=== PATIENT | female | born 1995 | race American Indian/Alaskan Native ===

== ENCOUNTER 2022-09-23 18:36 | Emergency (ER) | payer OTHER, SELFPAY ==
--- NOTE | ~2022-09-23 | XR_ITS ---
EXAMINATION: XR FEMUR, RIGHT CLINICAL INFORMATION: Thigh pain. COMPARISON: None available. TECHNIQUE: AP and lateral views of the right femur were obtained. FINDINGS: The bones and soft tissues are normal. No fracture. No osseous lesions. XR/XR femur RT 2V IMPRESSION: Normal right femur.
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
[2022-09-23 18:42] VITALS: BP 121/84; PULSE 110; O2SAT 100
[2022-09-23 18:44] VITALS: BP 125/87; PULSE 100; RESP 16; TEMP 37.3; O2SAT 99; BMI 23.3
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
[2022-09-23 19:01] LABS: MANUAL DIFF FLAG NO
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
[2022-09-23 19:22] LABS: Alanine Aminotransferase 47 U/L (0-31); Albumin Level 4.6 g/dL (3.5-5.0); Alkaline Phosphatase 56 U/L (39-117); Anion Gap 13 (12-20); Aspartate Amino Transferase 115 U/L (5-31); Basophils Percent Auto 0.3 % (0-2); Bilirubin Direct 0.2 mg/dL (0.0-0.5); Bilirubin Total 0.7 mg/dL (0.0-1.0); Blood Urea Nitrogen 11 mg/dL (9-16); Calcium 9.3 mg/dL (8.4-10.2); Carbon Dioxide 23 mmol/L (22-29); Chloride 106 mmol/L (96-108); Creatinine Clr Calc Pharmacy 82.5; Eosinophils Absolute Auto 0.1 X10*3/uL (0.0-0.4); Eosinophils Percent Auto 1.1 % (0-4); Estimated Glomerular Filt Rate > 60; Glucose Random 125 mg/dL (60-115); HCG Quantitative < 2 mIU/mL; Hematocrit 41.1 % (37.0-47.0); Hemoglobin 13.6 g/dl (12.0-16.0); Imm Gran Abs Auto 0.01 X10*3/uL (0.00-0.03); Imm Gran Pct Auto 0.2 % (0.0-0.4); Lymphocytes Absolute Auto 1.7 X10*3/uL (1.2-4.9); Lymphocytes Percent Auto 25.9 % (20-40); Mean Corpuscular HGB Conc 33.1 g/dl (31.0-35.0); Mean Corpuscular Hemoglobin 29.4 pg (27.0-33.0); Mean Platelet Volume 10.4 fL (9.4-12.3); Monocytes Absolute Auto 0.4 X10*3/uL (0.1-1.2); Monocytes Percent Auto 6.4 % (2-11); Neutrophils Absolute Auto 4.2 x10*3/uL (2.0-8.3); Neutrophils Percent Auto 66.1 % (45-73); Platelet Count 249 X10*3/uL (160-400); Potassium 3.6 mmol/L (3.3-5.1); Red Blood Count 4.62 X10*6/uL (4.20-5.50); Red Cell Distribution Width 11.6 % (11.0-16.0); Sodium 138 mmol/L (135-145); Total Protein 7.3 g/dL (6.5-8.0); White Blood Count 6.4 X10*3/uL (4.8-10.8)
[2022-09-23 20:00] VITALS: BP 109/69; PULSE 85; RESP 16; TEMP 36.6; O2SAT 98
--- NOTE | 2022-09-23 20:00 | MHC.EDTECH ---
2000 rounding done vitals sign taken ,pt was assisted unto bed sesay void lg amount of urine .
--- NOTE | 2022-09-23 20:12 | PC.NURSE ---
Pt to imaging
[2022-09-23 20:19] LABS: Appearance Urine Clear; Color Urine Yellow; Glucose Urine UA Negative (Negative); Leukocyte Esterase Urine Negative (Negative); Nitrite Urine Negative (Negative); PH 6.5 (5.0-9.0); Specific Gravity - Urine <= 1.005 (1.005-1.025); Urine Blood Negative (Negative); Urine Ketones Negative (Negative); Urine Protein Negative (Neg-Trace)
[2022-09-23] MEDS: iohexoL 350 MG/ML 100 ML INFUS..BTL IV (20:22)
[2022-09-23 20:31] LABS: Bacteria Urine None Seen (None Seen); Hyaline Casts Urine 0-2 /LPF (0-2); RBC Urine 0-2 /HPF (0-2); Squamous Epithelial Cell Urine 0-2 /HPF (0-2); WBC Urine 0-5 /HPF (0-5)
[2022-09-23 21:21] VITALS: BP 109/80; PULSE 87; RESP 15; TEMP 37.2; O2SAT 97
[2022-09-23 21:30] VITALS: BP 116/85; PULSE 96; RESP 18; O2SAT 97
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
--- NOTE | 2022-09-23 21:57 | PC.NURSE ---
Report to [facility].
== END 2022-09-23 22:02 | disposition short-term general hospital (02) ==
PROVIDERS: Emergency Provider Emergency Medicine Emergency Medical Services
DX: S06.5XAA Traumatic subdural hemorrhage with loss of consciousness status unknown, initial encounter (principal); V47.5XXA Car driver injured in collision with fixed or stationary object in traffic accident, initial encounter; Y93.89 Activity, other specified; Y92.410 Unspecified street and highway as the place of occurrence of the external cause; Y99.9 Unspecified external cause status
CPT/HCPCS: 36415; 70450; 71260; 72125; 73552; 74177; 80048; 80076; 81001; 84702; 85025; 99285; Q9967

== ENCOUNTER 2023-05-28 11:28 | Emergency (ER) | payer MEDICAID, SELFPAY ==
[2023-05-28 11:34] VITALS: BP 125/75; PULSE 93; RESP 18; TEMP 36.1; O2SAT 99; BMI 22.7
--- NOTE | 2023-05-28 11:34 | ED.GENADULT ---
HPI - General Adult General Chief complaint: General Medical Stated complaint: std check Time Seen by Provider: 05/28/23 11:38 Source: patient Mode of arrival: ambulatory Limitations: no limitations History of Present Illness HPI narrative: Patient is a 27 year old assigned female at with no reported medical history presenting to the emergency department today with a new lesion on her face and concern for STI. Patient states that 2 days ago she had oral sex and now has this lesion on her lip. Patient states that she has also felt febrile with a headache. Patient denies any dizziness, lightheadedness, abdominal pain, nausea, vomiting, chills, blurry vision, double vision, loss of vision, chest pain, difficulty breathing, shortness of breath, back pain, night sweats, pain with urination, increased urinary frequency, increased urinary urgency, blood in her urine or stool, syncope or a near syncopal episode, recent trauma or falls, bowel incontinence, bladder incontinence, bowel retention, bladder retention, or any other complaints at this time. Onset (ago): day(s) Severity: mild Severity scale (1-10): 2 Relieving factors: none Exacerbating factors: none Associated symptoms: fever/chills and headaches Treatments prior to arrival: none Related Data Previous Rx's Medication Instructions Recorded acyclovir 400 mg tablet 400 mg PO TID 7 days #21 tabs 05/28/23 doxycycline hyclate 100 mg tablet 100 mg PO BID 7 days #14 tabs 05/28/23 Allergies Allergy/AdvReac Type Severity Reaction Status Date / Time shrimp Allergy Angioedema Verified 05/28/23 11:38 Review of Systems Constitutional: Constitutional: Reports no additional constitutional complaints, Denies chills, Reports fever(s), Reports headache(s) and Denies night sweats Eyes: Eyes: Reports no additional eye complaints, Denies blurry vision, Denies change in vision, Denies diplopia, Denies eye discharge, Denies loss of vision and Denies eye pain ENT: Denies dizziness and Reports headache(s) Comments: lip lesion Cardiovascular: Cardiovascular: Reports no additional cardiovascular complaints, Denies chest pain, Denies lightheadedness, Denies Loss of Consciousness and Denies dyspnea Respiratory: Respiratory: Reports no additional respiratory complaints and Denies dyspnea Gastrointestinal: Gastrointestinal: Reports no additional gastrointestinal complaints, Denies abdominal pain, Denies melena, Denies hematochezia, Denies change in bowel habits and Denies change in stool character Genitourinary: Genitourinary: Denies hematuria, Denies urinary frequency, Denies dysuria, Denies urinary incontinence, Denies urinary hesitancy and Denies urinary urgency Musculoskeletal: Musculoskeletal: Reports no additional musculoskeletal complaints, Denies numbness and Denies tingling Neurologic: Denies dizziness, Reports headache(s), Denies loss of vision, Denies numbness and Denies tingling Psychiatric: Psychiatric: Reports no additional psychiatric complaints Endocrine: Endocrine: Reports no additional endocrine complaints Hematologic/Lymphatic: Hematologic/Lymphatic: Reports no additional hematologic/lymphatic complaints Allergic/Immunologic: Allergic/Immunologic: Reports no additional allergic/immunologic complaints PMFSH Past Medical History Attestation statement: The following information was validated with the patient. Source: old records reviewed and nursing notes reviewed Social History Social History Advance Directives: No Advance Directives Information Provided: No Physical Exam ED Vital Signs: Vital Signs - 24 hr 05/28/23 11:34 05/28/23 12:19 Temperature 97 F 98.1 F Pulse Rate 93 79 Respiratory Rate 18 14 Blood Pressure 125/75 122/81 Pulse Oximetry 99 98 Oxygen Delivery Method Room Air Room Air BMI result Body Mass Index 22.7 Const General: cooperative, no acute distress, alert and awake Nutritional Appearance: well nourished Orientation/consciousness: patient oriented x3 Limitations: no limitations HENMT Head: Yes normal to inspection and Yes atraumatic Ears: hearing grossly normal bilaterally and external ears normal General nose exam: Normal external nose present, no nasal discharge noted and no epistaxis Face and sinus: Yes normal facial exam, No abrasion and No laceration Mouth: Normal oral and palatal mucosa present, no drooling and no muffled voice Mouth/tongue images: 1. herpetic lesion present Eyes General: appearance normal, both eyes and all related structures Periorbital: periorbital findings normal Eyelids: Yes eyelids normal Conjunctivae: conjunctivae normal Pupils: Equal, round and reactive pupils present EOM: EOMs intact bilaterally Neck Neck: Yes normal visual inspection, Yes full ROM and Yes no lymphadenopathy Chest Chest palpation & inspection: normal inspection of the chest Resp Effort & Inspection: normal respiratory effort and able to speak in complete sentences GI Inspection: Yes normal to inspection Neuro General: patient oriented x3 and moves all extremities Cranial nerves: Yes Equal, round and reactive pupils present Cognition (Neuro): normal cognition Motor exam (neuro): 5/5 motor strength present throughout Sensory Exam: Normal double simultaneous stimulation for sensation Coordination: [id number] test normal Extrem General: Yes normal to inspection, Yes full ROM and Yes capillary refill normal Psych Appearance: grossly normal Mental Status: mental status grossly normal Affect: normal affect Attitude: cooperative Thought process: Normal thought process present Thought content: Normal thought content present Insight: Good insight present (Psych) Course Course Course Narrative: RME performed by Sirena Tamez PA-C. Patient is a 27 year old assigned female at presenting to the emergency department with concerns of STI. Patient has a fever and headache as well as a new facial lesion after having oral sex with an individual. Swabs ordered. Patient placed back in the waiting room pending room availability and results. Medications Administered Discontinued Medications Generic Name Dose Route Start Last Admin Trade Name Freq PRN Reason Stop Dose Admin Ceftriaxone Sodium 500 mg/ 0 mg 05/28/23 11:37 05/28/23 12:29 Lidocaine HCl 1 ml IM 05/28/23 11:38 500 kit ONCE ONE Administration Doxycycline Monohydrate 100 mg 05/28/23 11:37 05/28/23 12:29 Doxycycline Monohydrate 100 Mg Capsule PO 05/28/23 11:38 100 mg ONCE ONE Administration Medical Decision Making Medical Decision Making [facility] Narrative: Patient is a 27 year old assigned female at with no reported medical history presenting to the emergency department today with a lip lesion, concern for STI, and a headache. Patient's physical exam was as noted in the physical exam portion of this chart. Patient's COVID-19, influenza, and RSV tests were negative. Patient's CT / NG is pending at this time. I explained my physical exam findings as well as all test results to the patient. I answered all questions asked by the patient. I stressed the importance of the patient taking her medication as prescribed. I stressed the importance of the patient following up with her primary care provider. I stressed the importance of the patient returning to the emergency department immediately if her symptoms were to worsen or if she were to develop any dizziness, shortness of breath, difficulty breathing, chest pain, blurry vision, loss of vision, nausea, vomiting, abdominal pain, fever, chills, back pain, or any other complaints. Patient verbalized agreement and understanding with this treatment plan and discharge. Differential Diagnosis Differential Diagnoses: The differential diagnosis associated with the presentation includes Herpes HSV Gonorrhea Chlamydia Viral illness COVID-19 RSV Influenza Admission/Observation Consideration of admission/observation: Escalation of care including admission/observation considered Patient would have been admitted to the hospital had her work up had any findings where hospital admission was appropriate and her clinical presentation warranted hospital admission. Lab Data [facility]DM Lab Attestation statement: I reviewed the patient's lab results. My interpretation of these studies and their corresponding values is that they are grossly normal. Labs: Lab Results 05/28/23 Range/Units 12:01 Influenza Type A (PCR) NEGATIVE (Negative) Influenza Type B (PCR) NEGATIVE (Negative) RSV RNA Qual (PCR) NEGATIVE (Negative) SARS-CoV-2 RNA (RT-PCR) NEGATIVE (Negative) Prescription Management I considered prescription management with: Antiviral (patient prescribed an antiviral for her HSV) and Antibiotic (patient prescribed an antibiotic for STI prophylaxis) Discharge Plan Discharge Clinical Impression: Cold sore, Possible exposure to STD Patient Disposition: Home, Self-Care Instructions: Sexually Transmitted Diseases (ED), Safe Sex Practices (ED), Oral Herpes Simplex Virus Infections (ED) Additional Instructions: We will call you if your test is positive. Follow up with your primary care provider. Return to the emergency department immediately if your symptoms worsen or if you develop any dizziness, shortness of breath, difficulty breathing, chest pain, blurry vision, loss of vision, nausea, vomiting, abdominal pain, fever, chills, back pain, or any other complaints. Prescriptions: New acyclovir 400 mg tablet 400 mg PO TID 7 Days Qty: 21 0RF doxycycline hyclate 100 mg tablet 100 mg PO BID 7 Days Qty: 14 0RF Referrals: [facility] Family Medicine [Provider Group] (Call to establish and follow up with a primary care provider. If you already have a primary care provider, please follow up with them.) [facility] Primary [facility] [Provider Group] (Call to establish and follow up with a primary care provider. If you already have a primary care provider, please follow up with them.) [facility] Primary [facility]ital[facility] [Provider Group] (Call to establish and follow up with a primary care provider. If you already have a primary care provider, please follow up with them.) Print Language: Lithuanian
[2023-05-28 12:19] VITALS: BP 122/81; PULSE 79; RESP 14; TEMP 36.7; O2SAT 98
[2023-05-28] MEDS: Doxycycline Monohydrate 100 MG CAPSULE PO (12:29)
[2023-05-28] MEDS: cefTRIAXone sodium 500 MG, Lidocaine HCl 1 % MPF 1 ML IM (12:29)
[2023-05-28 12:45] LABS: Influenza A PCR NEGATIVE (Negative); Influenza B PCR NEGATIVE (Negative); Resp Syncy Virus RNA Qual PCR NEGATIVE (Negative); SARS COV2 PCR INHOUSE NEGATIVE (Negative)
[2023-05-28 15:40] LABS: CT PCR NOT DETECTED (Not Detect.); NG PCR NOT DETECTED (Not Detect.)
== END 2023-05-28 13:27 | disposition home or self-care (01) ==
PROVIDERS: Physician Assistant Medical; Emergency Provider Student in an Organized Health Care Education/Training Program
DX: B00.1 Herpesviral vesicular dermatitis (principal); Z20.2 Contact with and (suspected) exposure to infections with a predominantly sexual mode of transmission; Z20.822 Contact with and (suspected) exposure to COVID-19; Z20.828 Contact with and (suspected) exposure to other viral communicable diseases
CPT/HCPCS: 0241U; 0353U; 96372; 99283; 99284; J0696

== ENCOUNTER 2023-07-20 10:43 | Emergency (ER) | payer MEDICAID, SELFPAY ==
[2023-07-20 11:20] VITALS: BP 116/70; PULSE 100; RESP 18; TEMP 36.9; O2SAT 99; BMI 25.4
--- NOTE | 2023-07-20 11:22 | ED_ITS ---
HPI - General Adult General Chief complaint: Nausea/Vomiting/Diarrhea Stated complaint: Vomiting Time Seen by Provider: 07/20/23 12:55 Source: patient Mode of arrival: ambulatory Limitations: no limitations History of Present Illness HPI narrative: 27 yo female with no significant pmhx presents to the ED c/o nausea/vomiting, and diarrhea that began 2 days ago. PT stated she was eating dinner Tuesday night and soon after began to feel nauseous. She woke up yesterday morning and took a home temperature of 103 and began vomiting and having episodes of diarrhea. Today she is having worsening nausea and diarrhea which she took pepto bismol for with no relief. She denies headache, congestion, sore throat. Onset (ago): day(s) Location: abdomen Radiation: non-radiation Severity: mild Severity scale (1-10): 3 Relieving factors: none Exacerbating factors: none Associated symptoms: fever/chills Treatments prior to arrival: other (pepto bismol ) Related Data Previous Rx's Medication Instructions Recorded acyclovir 400 mg tablet 400 mg PO TID 7 days #21 tabs 05/28/23 doxycycline hyclate 100 mg tablet 100 mg PO BID 7 days #14 tabs 05/28/23 cefuroxime axetil 250 mg tablet 250 mg PO BID 7 days #14 tabs 07/20/23 ondansetron 4 mg disintegrating 4 mg PO Q8H 3 days #9 tabs 07/20/23 tablet Allergies Allergy/AdvReac Type Severity Reaction Status Date / Time shrimp Allergy Angioedema Verified 07/20/23 11:20 Review of Systems 2 Constitutional: Constitutional: Reports no additional constitutional complaints, Denies chills, Denies fever(s) and Denies night sweats Eyes: Eyes: Reports no additional eye complaints, Denies blurry vision, Denies change in vision, Denies diplopia, Denies eye discharge, Denies loss of vision and Denies eye pain ENT: Denies dizziness Cardiovascular: Cardiovascular: Reports no additional cardiovascular complaints, Denies chest pain, Denies lightheadedness, Denies Loss of Consciousness and Denies dyspnea Respiratory: Respiratory: Reports no additional respiratory complaints and Denies dyspnea Gastrointestinal: Gastrointestinal: Reports no additional gastrointestinal complaints, Reports abdominal pain, Denies melena, Denies hematochezia, Denies change in bowel habits, Denies change in stool character, Reports nausea and Reports vomiting Genitourinary: Genitourinary: Denies hematuria, Denies urinary frequency, Denies dysuria, Denies urinary incontinence, Denies urinary hesitancy and Denies urinary urgency Musculoskeletal: Musculoskeletal: Reports no additional musculoskeletal complaints, Denies numbness and Denies tingling Neurologic: Denies dizziness, Denies loss of vision, Denies numbness and Denies tingling Psychiatric: Psychiatric: Reports no additional psychiatric complaints Endocrine: Endocrine: Reports no additional endocrine complaints Hematologic/Lymphatic: Hematologic/Lymphatic: Reports no additional hematologic/lymphatic complaints Allergic/Immunologic: Allergic/Immunologic: Reports no additional allergic/immunologic complaints PMFSH Past Medical History Attestation statement: The following information was validated with the patient. Source: old records reviewed and nursing notes reviewed Social History Social History Advance Directives: No Physical Exam ED Vital Signs: Vital Signs - 24 hr 07/20/23 11:20 07/20/23 16:07 Temperature 98.5 F 98.3 F Pulse Rate 100 84 Respiratory Rate 18 18 Blood Pressure 116/70 99/63 Pulse Oximetry 99 100 Oxygen Delivery Method Room Air Room Air BMI result Body Mass Index 25.4 Const General: cooperative, no acute distress, alert and awake Nutritional Appearance: well nourished Orientation/consciousness: patient oriented x3 Limitations: no limitations HENMT Head: Yes normal to inspection and Yes atraumatic Ears: hearing grossly normal bilaterally and external ears normal General nose exam: Normal external nose present, no nasal discharge noted and no epistaxis Face and sinus: Yes normal facial exam, No abrasion and No laceration Mouth: Normal oral and palatal mucosa present, no drooling and no muffled voice Eyes General: appearance normal, both eyes and all related structures Periorbital: periorbital findings normal Eyelids: Yes eyelids normal Conjunctivae: conjunctivae normal Pupils: Equal, round and reactive pupils present EOM: EOMs intact bilaterally Neck Neck: Yes normal visual inspection, Yes full ROM and Yes no lymphadenopathy Chest Chest palpation & inspection: normal inspection of the chest Resp Effort & Inspection: normal respiratory effort and able to speak in complete sentences GI Inspection: Yes normal to inspection Palpation (GI): Soft to palpation, not firm, nontender and no guarding Neuro General: patient oriented x3 and moves all extremities Cranial nerves: Yes Equal, round and reactive pupils present Cognition (Neuro): normal cognition Motor exam (neuro): 5/5 motor strength present throughout Sensory Exam: Normal double simultaneous stimulation for sensation Coordination: [id number] test normal Extrem General: Yes normal to inspection, Yes full ROM and Yes capillary refill normal Psych Appearance: grossly normal Mental Status: mental status grossly normal Affect: normal affect Attitude: cooperative Thought process: Normal thought process present Thought content: Normal thought content present Insight: Good insight present (Psych) Course Course Course Narrative: Patient complains of nausea vomiting and diarrhea past 3 days Labs sent This rapid medical exam done in triage pending full evaluation by ER provider Medications Administered Discontinued Medications Generic Name Dose Route Start Last Admin Trade Name Freq PRN Reason Stop Dose Admin Sodium Chloride 1,000 mls @ 999 mls/hr 07/20/23 15:15 07/20/23 17:08 Ns IV 07/20/23 16:15 Infused .Q1H1M ARTHUR Infusion Ondansetron HCl 4 mg 07/20/23 11:20 07/20/23 11:23 Ondansetron Odt 4 Mg Tab.Rapdis TRANSLINGU 07/20/23 11:21 4 mg ONCE ONE Administration Ondansetron HCl 4 mg 07/20/23 15:05 07/20/23 15:37 Ondansetron Hcl 4 Mg/2 Ml Vial IVPUSH 07/20/23 15:06 4 mg ONCE ONE Administration Medical Decision Making Medical Decision Making [facility] Narrative: Patient is a 27 year old assigned female at with no reported medical history presenting to the emergency department today with abdominal pain, nausea, and vomiting. Patient's physical exam was unremarkable. Patient's blood work was unremarkable. Patient's urine showed a possible infection. Given the patient's symptoms, will treat. I explained my physical exam findings as well as all test results to the patient. I answered all questions asked by the patient. IV fluids and anti-nausea medication. I stressed the importance of the patient taking her medication as prescribed. I stressed the importance of the patient following up with her primary care provider. I stressed the importance of the patient returning to the emergency department immediately if her symptoms were to worsen or if she were to develop any dizziness, shortness of breath, difficulty breathing, chest pain, blurry vision, loss of vision, nausea, vomiting, abdominal pain, fever, chills, back pain, or any other complaints. Patient verbalized agreement and understanding with this treatment plan and discharge. Differential Diagnosis Differential Diagnoses: The differential diagnosis associated with the presentation includes Influenza viral illness COVID gastritis Admission/Observation Consideration of admission/observation: Escalation of care including admission/observation considered Patient would have been admitted to the hospital had her work up had any findings where hospital admission was appropriate and her clinical presentation warranted hospital admission. Lab Data [facility] Lab Attestation statement: I reviewed the patient's lab results. My interpretation of these results are in the [facility] Rationale portion of this note. 07/20/23 13:53 07/20/23 13:53 Labs: Lab Results 07/20/23 07/20/23 07/20/23 Range/Units 13:46 13:53 14:44 WBC 3.4 L (4.8-10.8) X10*3/uL RBC 4.58 (4.20-5.50) X10*6/uL Hgb 13.4 (12.0-16.0) g/dl Hct 40.0 (37.0-47.0) % MCV 87.3 (80.0-98.0) fL MCH 29.3 (27.0-33.0) pg MCHC 33.5 (31.0-35.0) g/dl RDW 11.7 (11.0-16.0) % Plt Count 184 D (160-400) X10*3/uL MPV 9.9 (9.4-12.3) fL Immature Gran % (Auto) 0.3 (0.0-0.4) % Neut % (Auto) 68.8 (45-73) % Lymph % (Auto) 21.5 (20-40) % [place] % (Auto) 8.8 (2-11) % Eos % (Auto) 0.3 (0-4) % Baso % (Auto) 0.3 (0-2) % Lymph # (Auto) 0.7 L (1.2-4.9) X10*3/uL [place] # (Auto) 0.3 (0.1-1.2) X10*3/uL Eos # (Auto) 0.0 (0.0-0.4) X10*3/uL Baso # (Auto) 0.0 (0.0-0.2) X10*3/uL Abs Immat Gran (auto) 0.01 (0.00-0.03) X10*3/uL Absolute Neuts (auto) 2.3 (2.0-8.3) x10*3/uL Absolute Nucleated RBC 0.000 (0.0-0.012) X10*3/uL Nucleated RBC % (auto) 0.0 (0.0-0.2) /100WBC Sodium 140 (135-145) mmol/L Potassium 4.3 (3.3-5.1) mmol/L Chloride 106 (96-108) mmol/L Carbon Dioxide 30 H (22-29) mmol/L Anion Gap 8 L (12-20) BUN 9 (9-16) mg/dL Creatinine 0.68 (0.5-1.4) mg/dL Estim Creat Clear Calc 105.8 Estimated GFR > 60 Random Glucose 96 (60-115) mg/dL Calcium 9.3 (8.4-10.2) mg/dL Total Bilirubin 0.4 (0.0-1.0) mg/dL Direct Bilirubin 0.2 (0.0-0.5) mg/dL AST 20 (5-31) U/L ALT 13 (0-31) U/L Alkaline Phosphatase 47 (39-117) U/L Total Protein 7.1 (6.5-8.0) g/dL Albumin 4.2 (3.5-5.0) g/dL Lipase 13 (8-78) U/L Beta HCG, Quant < 2 mIU/mL Urine Color Yellow Urine Appearance Clear Urine pH 7.5 (5.0-9.0) Ur Specific [place] <= 1.005 (1.005-1.025) Urine Protein Negative (Neg-Trace) mg/dL Urine Glucose (UA) Negative (Negative) mg/dL Urine Ketones Negative (Negative) mg/dL Urine Blood Negative (Negative) Urine Nitrite Negative (Negative) Ur Leukocyte Esterase Small (1+) H (Negative) Urine RBC 0-2 (0-2) /HPF Urine WBC 6-10 H (0-5) /HPF Ur Squamous Epith Cells 6-10 (0-2) /HPF Urine Bacteria 1+ (None Seen) Hyaline Casts 0-2 (0-2) /LPF Urine Test NEGATIVE (NEGATIVE) COVID-19 ([place]) Negative (Negative) COVID-19 Clin Com See Note Influenza Type A ([place]) Negative (Negative) Influenza Type B ([place]) Negative (Negative) Influenza A & B Note See Note Tests considered The following testing was considered but not selected: CT abdomen / pelvis was considered however, the patient's current clinical presentation does not warrant it at this time. I explained this to the patient who verbalized agreement and understanding Prescription Management I considered prescription management with: Antibiotic (patient prescribed an antibiotic for possible UTI) Discharge Plan Discharge Clinical Impression: Nausea & vomiting, UTI (urinary tract infection) Patient Disposition: Home, Self-Care Instructions: Urinary Tract Infection in Women (DC), Acute Nausea and Vomiting (ED) Additional Instructions: Follow up with your primary care provider. Return to the emergency department immediately if your symptoms worsen or if you develop any dizziness, shortness of breath, difficulty breathing, chest pain, blurry vision, loss of vision, nausea, vomiting, abdominal pain, fever, chills, back pain, or any other complaints. Prescriptions: New cefuroxime axetil 250 mg tablet 250 mg PO BID 7 Days Qty: 14 0RF ondansetron 4 mg tablet,disintegrating 4 mg PO Q8H 3 Days Qty: 9 0RF No Action acyclovir 400 mg tablet 400 mg PO TID 7 Days Qty: 21 0RF doxycycline hyclate 100 mg tablet 100 mg PO BID 7 Days Qty: 14 0RF [place] [facility] [place] [facility] [place] (Call to establish and follow up with a primary care provider. If you already have a primary care provider, please follow up with them.) [facility] [place] [facility] [place]] (Call to establish and follow up with a primary care provider. If you already have a primary care provider, please follow up with them.) [facility] [place] [place] Group] (Call to establish and follow up with a primary care provider. If you already have a primary care provider, please follow up with them.) Print Language: British
[2023-07-20] MEDS: Ondansetron ODT 4 MG TAB.RAPDIS TRANSLINGU (11:23)
[2023-07-20 13:58] LABS: MANUAL DIFF FLAG NO
[2023-07-20 14:00] LABS: Basophils Percent Auto 0.3 % (0-2); Eosinophils Percent Auto 0.3 % (0-4); Hemoglobin 13.4 g/dl (12.0-16.0); Imm Gran Abs Auto 0.01 X10*3/uL (0.00-0.03); Imm Gran Pct Auto 0.3 % (0.0-0.4); Lymphocytes Absolute Auto 0.7 X10*3/uL (1.2-4.9); Lymphocytes Percent Auto 21.5 % (20-40); Mean Corpuscular HGB Conc 33.5 g/dl (31.0-35.0); Mean Corpuscular Hemoglobin 29.3 pg (27.0-33.0); Mean Corpuscular Volume 87.3 fL (80.0-98.0); Mean Platelet Volume 9.9 fL (9.4-12.3); Monocytes Absolute Auto 0.3 X10*3/uL (0.1-1.2); Monocytes Percent Auto 8.8 % (2-11); Neutrophils Absolute Auto 2.3 x10*3/uL (2.0-8.3); Neutrophils Percent Auto 68.8 % (45-73); Platelet Count 184 X10*3/uL (160-400); Red Blood Count 4.58 X10*6/uL (4.20-5.50); Red Cell Distribution Width 11.7 % (11.0-16.0); White Blood Count 3.4 X10*3/uL (4.8-10.8)
[2023-07-20 14:15] LABS: Alanine Aminotransferase 13 U/L (0-31); Albumin Level 4.2 g/dL (3.5-5.0); Alkaline Phosphatase 47 U/L (39-117); Anion Gap 8 (12-20); Aspartate Amino Transferase 20 U/L (5-31); Bilirubin Direct 0.2 mg/dL (0.0-0.5); Bilirubin Total 0.4 mg/dL (0.0-1.0); Blood Urea Nitrogen 9 mg/dL (9-16); Calcium 9.3 mg/dL (8.4-10.2); Carbon Dioxide 30 mmol/L (22-29); Chloride 106 mmol/L (96-108); Creatinine Clr Calc Pharmacy 105.8; Estimated Glomerular Filt Rate > 60; Glucose Random 96 mg/dL (60-115); Lipase 13 U/L (8-78); Potassium 4.3 mmol/L (3.3-5.1); Sodium 140 mmol/L (135-145); Total Protein 7.1 g/dL (6.5-8.0)
[2023-07-20 14:29] LABS: COVID-19 Test Negative (Negative); IDNOW Serial# 08D9AD1C; IDNOW Serial# 152EDE1D; Influenza A Negative (Negative); Influenza B2 Negative (Negative)
[2023-07-20 14:55] LABS: HCG Quantitative < 2 mIU/mL
[2023-07-20 14:56] LABS: Appearance Urine Clear; Color Urine Yellow; Glucose Urine UA Negative (Negative); Leukocyte Esterase Urine Small (1+) (Negative); Nitrite Urine Negative (Negative); PH 7.5 (5.0-9.0); Specific Gravity - Urine <= 1.005 (1.005-1.025); UMIC TRIGGER UACC YES; Urine Blood Negative (Negative); Urine Ketones Negative (Negative); Urine Protein Negative (Neg-Trace)
[2023-07-20 14:58] LABS: UPreg QC Valid YES; Urine Pregnancy NEGATIVE (NEGATIVE)
[2023-07-20 14:59] LABS: Bacteria Urine 1+ (None Seen); Hyaline Casts Urine 0-2 /LPF (0-2); RBC Urine 0-2 /HPF (0-2); UACC Culture Trigger YES
[2023-07-20] MEDS: ondansetron HCL 4 MG/2 ML VIAL IVPUSH (15:37)
[2023-07-20] MEDS: 0.9 % Sodium Chloride 1,000 ML 999 ML IV (15:40)
[2023-07-20 16:07] VITALS: BP 99/63; PULSE 84; RESP 18; TEMP 36.8; O2SAT 100
== END 2023-07-20 17:34 | disposition home or self-care (01) ==
PROVIDERS: Physician Assistant Medical; Emergency Provider Emergency Medicine Emergency Medical Services
DX: N39.0 Urinary tract infection, site not specified (principal); R11.2 Nausea with vomiting, unspecified; Z11.52 Encounter for screening for COVID-19
CPT/HCPCS: 36415; 80048; 80076; 81001; 81025; 83690; 84702; 85025; 87086; 87088; 87186; 87502; 87635; 96361; 96374; 99284; J2405

== ENCOUNTER 2024-04-04 09:17 | Emergency (ER) | payer MEDICAID, SELFPAY ==
[2024-04-04 09:20] VITALS: BP 130/83; PULSE 86; RESP 16; TEMP 37; O2SAT 100; BMI 26.3
--- NOTE | 2024-04-04 09:56 | ED_ITS ---
HPI - General Adult General Chief complaint: General Medical Stated complaint: [id number] Time Seen by Provider: 04/04/24 09:27 Source: patient, RN notes reviewed and old records reviewed Mode of arrival: ambulatory History of Present Illness ED Provider: Pat Steinberg PA-C HPI narrative: 28-year-old female with no significant past medical history presenting to the ED complaining of intermittent headache, nausea, vomiting, decreased p.o. intake, and shakiness/increased anxiety x1 month worsening over the past few days. Reports some epigastric abdominal pain times today. Denies recent travel, suspicious food intake, sick contacts, CP/SOB, diarrhea, fever, sore throat, vision change or loss, weakness Related Data Previous Rx's ?Medication ?Instructions ?Recorded acyclovir 400 mg tablet 400 mg PO TID 7 days #21 tabs 05/28/23 doxycycline hyclate 100 mg tablet 100 mg PO BID 7 days #14 tabs 05/28/23 cefuroxime axetil 250 mg tablet 250 mg PO BID 7 days #14 tabs 07/20/23 ondansetron 4 mg disintegrating 4 mg PO Q8H 3 days #9 tabs 07/20/23 tablet aluminum-mag hydroxide-simethicone 5 ml PO 5XD PRN dyspepsia #30 mL 04/04/24 200 mg-200 mg-20 mg/5 mL oral susp (Maalox Advanced) ondansetron 4 mg disintegrating 4 mg PO Q8H PRN nausea and 04/04/24 tablet vomiting #10 tabs Allergies Allergy/AdvReac Type Severity Reaction Status Date / Time shrimp Allergy Angioedema Verified 04/04/24 09:23 Review of Systems 2 Review of Systems: Yes all other systems are reviewed and are negative Constitutional: Constitutional: Reports as per HPI Neurologic: Denies Abnormal speech present PMFSH Past Medical History Attestation statement: The following information was validated with the patient. Source: old records reviewed Social History Social History Advance Directives: No Advance Directives Information Provided: Yes Physical Exam ED Vital Signs: Vital Signs - 24 hr 04/04/24 09:20 Temperature 98.6 F Pulse Rate 86 Respiratory Rate 16 Blood Pressure 130/83 Pulse Oximetry 100 Oxygen Delivery Method Room Air BMI result Body Mass Index 26.3 Const General: cooperative, healthy appearing and no acute distress Orientation/consciousness: patient oriented x3 Limitations: no limitations HENMT Head: Yes normal to inspection and Yes atraumatic Ears: hearing grossly normal bilaterally and external ears normal General nose exam: Normal external nose present Face and sinus: Yes normal facial exam Mouth: Normal oral and palatal mucosa present and no drooling Throat: Yes posterior oropharynx normal, Yes tonsils normal, Yes uvula midline, No uvula laterally displaced and No uvular edema Eyes General: appearance normal, both eyes and all related structures Pupils: Equal, round and reactive pupils present EOM: EOMs intact bilaterally Neck Neck: Yes normal visual inspection and Yes no meningeal signs Resp Effort & Inspection: normal respiratory effort and no respiratory distress Auscultation: clear to auscultation bilaterally Cardio Rate: regular rate Heart sounds: S1 normal heart sound present and S2 normal heart sound present GI Inspection: Yes normal to inspection Palpation (GI): Soft to palpation, nontender, no guarding and not rigid General: Yes no CVA tenderness Back/Spine/Pelvis Back: no CVA tenderness Skin Rashes: no rashes Wounds: no wounds Neuro General: patient oriented x3, gait normal, tone normal, moves all extremities, no meningeal signs, no focal motor deficits and CN's II-XI intact bilaterally Cranial nerves: Yes CN's II-XII intact bilaterally, Yes Equal, round and reactive pupils present and Yes Bilaterally intact EOM present Cognition (Neuro): normal cognition Speech: No Abnormal speech present Gait exam (Neuro): Normal gait present Motor exam (neuro): 5/5 motor strength present throughout Extrem General: Yes normal to inspection Course Course Course Narrative: -1050-- blood work, viral testing, and urine is unremarkable > patient tolerated p.o. in the ED. recommended close GI/PCP follow-up Results discussed with patient including worrisome signs and symptoms and strict return precautions, and when to return to the emergency department. They verbalized understanding and feel safe for discharge at this time. Medications Administered Discontinued Medications Generic Name Dose Route Start Last Admin Trade Name Freq PRN Reason Stop Dose Admin Al Hydroxide/Mg Hydroxide 30 ml 04/04/24 09:34 04/04/24 10:06 Magnesium Hydrox/Alum Hydrox 30 Ml Oral.Susp PO 04/04/24 09:35 30 ml ONCE ONE Administration Famotidine 20 mg 04/04/24 09:34 04/04/24 10:06 Famotidine 20 Mg Tablet PO 04/04/24 09:35 20 mg ONCE ONE Administration Ondansetron HCl 4 mg 04/04/24 09:34 04/04/24 10:06 Ondansetron Odt 4 Mg Tab.Jennifer WELCH 04/04/24 09:35 4 mg ONCE ONE Administration Medical Decision Making Medical Decision Making [facility] Narrative: 28-year-old female with no significant past medical history presenting to the ED complaining of intermittent headache, nausea, vomiting, decreased p.o. intake, and shakiness/increased anxiety x1 month worsening over the past few days. On exam vital signs stable, NAD, nontoxic appearing, no focal neuro deficits, abdomen soft and nontender. Concern for dehydration vs metabolic abnormalities vs migraine headache vs viral illness. Lower suspicion for cholecystitis/pancreatitis, appendicitis, ICH/meningitis or encephalitis Plan: Labs, UA, urine , viral testing, symptomatic remedies, p.o. challenge Please refer to course for remaining clinical decision making, interpretation of labs/imaging results, and discussions with consultants and/or family members. Differential Diagnosis Differential Diagnoses: The differential diagnosis associated with the presentation includes As above Admission/Observation Consideration of admission/observation: Escalation of care including admission/observation considered Lab Data [facility] Lab Attestation statement: I reviewed the patient's lab results. 04/04/24 09:54 04/04/24 09:54 Labs: Lab Results 04/04/24 Range/Units 09:54 WBC 4.5 L (4.8-10.8) X10*3/uL RBC 4.85 (4.20-5.50) X10*6/uL Hgb 14.3 (12.0-16.0) g/dl Hct 42.4 (37.0-47.0) % MCV 87.4 (80.0-98.0) fL MCH 29.5 (27.0-33.0) pg MCHC 33.7 (31.0-35.0) g/dl RDW 11.9 (11.0-16.0) % Plt Count 218 (160-400) X10*3/uL MPV 9.9 (9.4-12.3) fL Immature Gran % (Auto) 0.2 (0.0-0.4) % Neut % (Auto) 50.9 (45-73) % Lymph % (Auto) 37.7 (20-40) % [place] % (Auto) 9.2 (2-11) % Eos % (Auto) 1.6 (0-4) % Baso % (Auto) 0.4 (0-2) % Lymph # (Auto) 1.7 (1.2-4.9) X10*3/uL [place] # (Auto) 0.4 (0.1-1.2) X10*3/uL Eos # (Auto) 0.1 (0.0-0.4) X10*3/uL Baso # (Auto) 0.0 (0.0-0.2) X10*3/uL Abs Immat Gran (auto) 0.01 (0.00-0.03) X10*3/uL Absolute Neuts (auto) 2.3 (2.0-8.3) x10*3/uL Absolute Nucleated RBC 0.000 (0.0-0.012) X10*3/uL Nucleated RBC % (auto) 0.0 (0.0-0.2) /100WBC Sodium 139 (135-145) mmol/L Potassium 4.6 (3.3-5.1) mmol/L Chloride 106 (96-108) mmol/L Carbon Dioxide 26 (22-29) mmol/L Anion Gap 12 (12-20) BUN 8 L (9-16) mg/dL Creatinine 0.77 (0.5-1.4) mg/dL Estim Creat Clear Calc 94.2 Estimated GFR > 60 Random Glucose 101 (60-115) mg/dL Calcium 9.4 (8.4-10.2) mg/dL Magnesium 2.0 (1.6-2.6) mg/dL Total Bilirubin 0.5 (0.0-1.0) mg/dL Direct Bilirubin 0.2 (0.0-0.5) mg/dL AST 32 H (5-31) U/L ALT 26 (0-31) U/L Alkaline Phosphatase 47 (39-117) U/L Total Protein 7.4 (6.5-8.0) g/dL Albumin 4.5 (3.5-5.0) g/dL Lipase 13 (8-78) U/L Urine Color Yellow Urine Appearance Clear Urine pH 7.5 (5.0-9.0) Ur Specific [place] <= 1.005 (1.005-1.025) Urine Protein Negative (Neg-Trace) mg/dL Urine Glucose (UA) Negative (Negative) mg/dL Urine Ketones Negative (Negative) mg/dL Urine Blood Negative (Negative) Urine Nitrite Negative (Negative) Ur Leukocyte Esterase Negative (Negative) Urine Test NEGATIVE (NEGATIVE) Influenza Type A (PCR) NEGATIVE (Negative) Influenza Type B (PCR) NEGATIVE (Negative) RSV RNA Qual (PCR) NEGATIVE (Negative) SARS-CoV-2 RNA (RT-PCR) NEGATIVE (Negative) Radiology Impression Discussion of test interpretation with radiology: I have reviewed the radiologist's reading. External Record Review External record reviewed: Inpatient record, Office record, Outpatient record, Prior outpatient labs, Prior outpatient radiology, Primary care record and Outside ED record Tests considered The following testing was considered but not selected: As above Prescription Management I considered prescription management with: Pain Medication, Antiviral and Antibiotic Discharge Plan Discharge Clinical Impression: Nausea & vomiting, Headache Patient Disposition: Home, Self-Care Instructions: Acute Headache (DC), Acute Nausea and Vomiting (ED) Additional Instructions: Your blood work, viral testing, and urine were unremarkable Please follow-up with your primary care doctor as well as Gastroenterology Pre[facility] as an antinausea medication, take as needed Maalox will help with acid reduction Please avoid caffeine, chocolate, spicy foods as they can make her symptoms worse If symptoms persist or worsen, you are unable to eat or drink have constant worsening headache return to the ED Prescriptions: New alum-mag hydroxide-simeth [Maalox Advanced] 200-200-20 mg/5 mL suspension 5 ml PO 5XD PRN (Reason: dyspepsia) Qty: 30 0RF Rx Instructions: administer between meals and at bedtime ondansetron 4 mg tablet,disintegrating 4 mg PO Q8H PRN (Reason: nausea and vomiting) Qty: 10 0RF No Action acyclovir 400 mg tablet 400 mg PO TID 7 Days Qty: 21 0RF doxycycline hyclate 100 mg tablet 100 mg PO BID 7 Days Qty: 14 0RF cefuroxime axetil 250 mg tablet 250 mg PO BID 7 Days Qty: 14 0RF ondansetron 4 mg tablet,disintegrating 4 mg PO Q8H 3 Days Qty: 9 0RF Referrals: [facility] [place] [facility] [place]Provider Group] Physician,Unknown J [Primary Care Provider] - 1 week Print Language: [place]
[2024-04-04 09:59] LABS: MANUAL DIFF FLAG NO
[2024-04-04 10:02] LABS: Basophils Percent Auto 0.4 % (0-2); Eosinophils Absolute Auto 0.1 X10*3/uL (0.0-0.4); Eosinophils Percent Auto 1.6 % (0-4); Hematocrit 42.4 % (37.0-47.0); Hemoglobin 14.3 g/dl (12.0-16.0); Imm Gran Abs Auto 0.01 X10*3/uL (0.00-0.03); Imm Gran Pct Auto 0.2 % (0.0-0.4); Lymphocytes Absolute Auto 1.7 X10*3/uL (1.2-4.9); Lymphocytes Percent Auto 37.7 % (20-40); Mean Corpuscular HGB Conc 33.7 g/dl (31.0-35.0); Mean Corpuscular Hemoglobin 29.5 pg (27.0-33.0); Mean Corpuscular Volume 87.4 fL (80.0-98.0); Mean Platelet Volume 9.9 fL (9.4-12.3); Monocytes Absolute Auto 0.4 X10*3/uL (0.1-1.2); Monocytes Percent Auto 9.2 % (2-11); Neutrophils Absolute Auto 2.3 x10*3/uL (2.0-8.3); Neutrophils Percent Auto 50.9 % (45-73); Platelet Count 218 X10*3/uL (160-400); Red Blood Count 4.85 X10*6/uL (4.20-5.50); Red Cell Distribution Width 11.9 % (11.0-16.0); White Blood Count 4.5 X10*3/uL (4.8-10.8)
[2024-04-04 10:03] LABS: Appearance Urine Clear; Color Urine Yellow; Glucose Urine UA Negative (Negative); Leukocyte Esterase Urine Negative (Negative); Nitrite Urine Negative (Negative); PH 7.5 (5.0-9.0); Specific Gravity - Urine <= 1.005 (1.005-1.025); Urine Blood Negative (Negative); Urine Ketones Negative (Negative); Urine Protein Negative (Neg-Trace)
[2024-04-04 10:06] LABS: UPreg QC Valid YES; Urine Pregnancy NEGATIVE (NEGATIVE)
[2024-04-04] MEDS: Famotidine 20 MG TABLET PO (10:06)
[2024-04-04] MEDS: Ondansetron ODT 4 MG TAB.RAPDIS TRANSLINGU (10:06)
[2024-04-04] MEDS: Magnesium Hydrox/Alum Hydrox 30 ML ORAL.SUSP PO (10:06)
[2024-04-04 10:15] LABS: Alanine Aminotransferase 26 U/L (0-31); Albumin Level 4.5 g/dL (3.5-5.0); Alkaline Phosphatase 47 U/L (39-117); Anion Gap 12 (12-20); Aspartate Amino Transferase 32 U/L (5-31); Bilirubin Direct 0.2 mg/dL (0.0-0.5); Bilirubin Total 0.5 mg/dL (0.0-1.0); Blood Urea Nitrogen 8 mg/dL (9-16); Calcium 9.4 mg/dL (8.4-10.2); Carbon Dioxide 26 mmol/L (22-29); Chloride 106 mmol/L (96-108); Creatinine Clr Calc Pharmacy 94.2; Estimated Glomerular Filt Rate > 60; Glucose Random 101 mg/dL (60-115); Lipase 13 U/L (8-78); Potassium 4.6 mmol/L (3.3-5.1); Sodium 139 mmol/L (135-145); Total Protein 7.4 g/dL (6.5-8.0)
[2024-04-04 10:40] LABS: Influenza A PCR NEGATIVE (Negative); Influenza B PCR NEGATIVE (Negative); Resp Syncy Virus RNA Qual PCR NEGATIVE (Negative); SARS COV2 PCR INHOUSE NEGATIVE (Negative)
[2024-04-04 11:21] VITALS: BP 130/83; PULSE 86; RESP 16; TEMP 37; O2SAT 100
== END 2024-04-04 11:22 | disposition home or self-care (01) ==
PROVIDERS: Physician Assistant; Emergency Provider Emergency Medicine Emergency Medical Services
DX: R51.9 Headache, unspecified (principal); R11.2 Nausea with vomiting, unspecified; F41.9 Anxiety disorder, unspecified; R10.13 Epigastric pain; Z03.818 Encounter for observation for suspected exposure to other biological agents ruled out
CPT/HCPCS: 0241U; 80048; 80076; 81003; 81025; 83690; 83735; 85025; 99282; 99283

== ENCOUNTER 2024-06-07 20:12 | Emergency (ER) | payer MEDICAID, SELFPAY ==
[2024-06-07 20:15] VITALS: BP 109/72; PULSE 102; RESP 16; TEMP 36.3; O2SAT 98; BMI 24.6
[2024-06-07 20:33] LABS: MANUAL DIFF FLAG NO
[2024-06-07 20:34] LABS: Basophils Percent Auto 0.2 % (0-2); Eosinophils Absolute Auto 0.1 X10*3/uL (0.0-0.4); Eosinophils Percent Auto 1.3 % (0-4); Hematocrit 37.4 % (37.0-47.0); Hemoglobin 12.8 g/dl (12.0-16.0); Imm Gran Abs Auto 0.03 X10*3/uL (0.00-0.03); Imm Gran Pct Auto 0.4 % (0.0-0.4); Lymphocytes Absolute Auto 1.4 X10*3/uL (1.2-4.9); Lymphocytes Percent Auto 16.6 % (20-40); Mean Corpuscular HGB Conc 34.2 g/dl (31.0-35.0); Mean Corpuscular Hemoglobin 29.3 pg (27.0-33.0); Mean Corpuscular Volume 85.6 fL (80.0-98.0); Mean Platelet Volume 9.8 fL (9.4-12.3); Monocytes Absolute Auto 0.5 X10*3/uL (0.1-1.2); Monocytes Percent Auto 6.1 % (2-11); Neutrophils Absolute Auto 6.3 x10*3/uL (2.0-8.3); Neutrophils Percent Auto 75.4 % (45-73); Platelet Count 201 X10*3/uL (160-400); Red Blood Count 4.37 X10*6/uL (4.20-5.50); Red Cell Distribution Width 11.2 % (11.0-16.0); White Blood Count 8.3 X10*3/uL (4.8-10.8)
[2024-06-07 20:43] LABS: INTERNATIONAL NORM RATIO 1.2 (0.9-1.1); Prothrombin Time 13.9 SEC (10.9-12.4)
[2024-06-07 20:56] LABS: Alanine Aminotransferase 10 U/L (0-31); Alkaline Phosphatase 46 U/L (39-117); Anion Gap 10 (12-20); Aspartate Amino Transferase 18 U/L (5-31); Bilirubin Total 0.3 mg/dL (0.0-1.0); Blood Urea Nitrogen 7 mg/dL (9-16); Calcium 8.8 mg/dL (8.4-10.2); Carbon Dioxide 25 mmol/L (22-29); Chloride 105 mmol/L (96-108); Creatinine Clr Calc Pharmacy 119.2; Estimated Glomerular Filt Rate > 60; Glucose Random 105 mg/dL (60-115); Potassium 3.8 mmol/L (3.3-5.1); Sodium 136 mmol/L (135-145); Total Protein 6.8 g/dL (6.5-8.0)
[2024-06-07 21:14] LABS: HCG Quantitative 108730 mIU/mL
[2024-06-07 22:32] VITALS: BP 100/64; PULSE 98; RESP 15; TEMP 36.7; O2SAT 99
--- NOTE | 2024-06-07 22:49 | ED.FEMALEGU ---
HPI - Female Genitourinary General Chief complaint: Urogenital-Female Stated complaint: UTI?/7 wks preg Time Seen by Provider: 06/07/24 22:46 Source: patient Mode of arrival: ambulatory Limitations: no limitations History of Present Illness ED Provider: HPI Narrative: Patient is 7 weeks comes here with dysuria frequency urgency since for last 2 days with back pain had low-grade fever with chills no vaginal discharge or bleeding patient's plan for MTP on 06/13 Related Data Previous Rx's ?Medication ?Instructions ?Recorded acyclovir 400 mg tablet 400 mg PO TID 7 days #21 tabs 05/28/23 doxycycline hyclate 100 mg tablet 100 mg PO BID 7 days #14 tabs 05/28/23 cefuroxime axetil 250 mg tablet 250 mg PO BID 7 days #14 tabs 07/20/23 ondansetron 4 mg disintegrating 4 mg PO Q8H 3 days #9 tabs 07/20/23 tablet aluminum-mag hydroxide-simethicone 5 ml PO 5XD PRN dyspepsia #30 mL 04/04/24 200 mg-200 mg-20 mg/5 mL oral susp (Maalox Advanced) ondansetron 4 mg disintegrating 4 mg PO Q8H PRN nausea and 04/04/24 tablet vomiting #10 tabs cefuroxime axetil 500 mg tablet 500 mg PO BID 7 days #14 tabs 06/07/24 phenazopyridine 200 mg tablet 200 mg PO TID 2 days #6 tabs 06/07/24 (Pyridium) Allergies Allergy/AdvReac Type Severity Reaction Status Date / Time shrimp Allergy Angioedema Verified 06/07/24 20:18 Review of Systems Review of Systems: Yes all other systems are reviewed and are negative [facility] Social History Social History Advance Directives: No Advance Directives Information Provided: No Patient : Yes Physical Exam Vital Signs: Vital Signs: Last Vital Signs Temp 98.0 F 06/08/24 00:03 Pulse 98 06/08/24 00:03 Resp 15 06/08/24 00:03 BP 100/64 06/08/24 00:03 Pulse Ox 99 06/08/24 00:03 O2 Del Method Room Air 06/08/24 00:03 BMI result Body Mass Index 24.6 Appearance: Alert. Oriented X3. No acute distress. Eyes: No pallor or icterus ENT: Pharynx normal. Oral Mucosa moist Neck: Normal inspection. Neck supple. CVS: Normal heart rate and rhythm. Pulses normal. Respiratory: No respiratory distress. Equal air entry bilateral, no wheezing/rales/rhonchi Abdomen: Soft and mild suprapubic discomfort no guarding or rebound tenderness Bowel sounds are present, no mass palpable, no CVA tenderness Skin: Skin warm and dry. Normal skin color. Normal skin turgor. Extremities: No lower extremity edema. No calf tenderness Neuro: Oriented X 3. No motor deficit. Medications Administered Discontinued Medications Generic Name Dose Route Start Last Admin Trade Name Freq PRN Reason Stop Dose Admin Acetaminophen 650 mg 06/07/24 23:52 06/07/24 23:54 Acetaminophen 325 Mg Tablet PO 06/07/24 23:53 650 mg ONCE ONE Administration Cefuroxime Axetil 500 mg 06/07/24 23:04 06/07/24 23:49 Cefuroxime Axetil 500 Mg Tablet PO 06/07/24 23:05 500 mg ONCE ONE Administration Phenazopyridine HCl 200 mg 06/07/24 23:04 06/07/24 23:49 Phenazopyridine Hcl 200 Mg Tablet PO 06/07/24 23:05 200 mg ONCE ONE Administration Medical Decision Making Medical Decision Making [facility] Narrative: Patient with UTI the early plan for MTP urine shows significant WBCs had previous urine culture showed E coli will prescribe cefuroxime Differential Diagnosis Differential Diagnoses: The differential diagnosis associated with the presentation includes Lab Data [facility] Lab Attestation statement: I reviewed the patient's lab results. 06/07/24 20:26 06/07/24 20:26 Labs: Lab Results 06/07/24 06/07/24 Range/Units 20:26 22:27 WBC 8.3 (4.8-10.8) X10*3/uL RBC 4.37 (4.20-5.50) X10*6/uL Hgb 12.8 (12.0-16.0) g/dl Hct 37.4 (37.0-47.0) % MCV 85.6 (80.0-98.0) fL MCH 29.3 (27.0-33.0) pg MCHC 34.2 (31.0-35.0) g/dl RDW 11.2 (11.0-16.0) % Plt Count 201 (160-400) X10*3/uL MPV 9.8 (9.4-12.3) fL Immature Gran % (Auto) 0.4 (0.0-0.4) % Neut % (Auto) 75.4 H (45-73) % Lymph % (Auto) 16.6 L (20-40) % Island % (Auto) 6.1 (2-11) % Eos % (Auto) 1.3 (0-4) % Baso % (Auto) 0.2 (0-2) % Lymph # (Auto) 1.4 (1.2-4.9) X10*3/uL Island # (Auto) 0.5 (0.1-1.2) X10*3/uL Eos # (Auto) 0.1 (0.0-0.4) X10*3/uL Baso # (Auto) 0.0 (0.0-0.2) X10*3/uL Abs Immat Gran (auto) 0.03 (0.00-0.03) X10*3/uL Absolute Neuts (auto) 6.3 (2.0-8.3) x10*3/uL Absolute Nucleated RBC 0.000 (0.0-0.012) X10*3/uL Nucleated RBC % (auto) 0.0 (0.0-0.2) /100WBC PT 13.9 H (10.9-12.4) SEC INR 1.2 H (0.9-1.1) Sodium 136 (135-145) mmol/L Potassium 3.8 (3.3-5.1) mmol/L Chloride 105 (96-108) mmol/L Carbon Dioxide 25 (22-29) mmol/L Anion Gap 10 L (12-20) BUN 7 L (9-16) mg/dL Creatinine 0.59 (0.5-1.4) mg/dL Estim Creat Clear Calc 119.2 Estimated GFR > 60 Random Glucose 105 (60-115) mg/dL Calcium 8.8 D (8.4-10.2) mg/dL Total Bilirubin 0.3 (0.0-1.0) mg/dL AST 18 (5-31) U/L ALT 10 (0-31) U/L Alkaline Phosphatase 46 (39-117) U/L Total Protein 6.8 (6.5-8.0) g/dL Albumin 4.0 (3.5-5.0) g/dL Beta HCG, Quant [id number] mIU/mL Urine Color Yellow Urine Appearance Cloudy Urine pH 7.0 (5.0-9.0) Ur Specific [place] 1.015 (1.005-1.025) Urine Protein Negative (Neg-Trace) mg/dL Urine Glucose (UA) Negative (Negative) mg/dL Urine Ketones Negative (Negative) mg/dL Urine Blood Negative (Negative) Urine Nitrite Negative (Negative) Ur Leukocyte Esterase Small (1+) H (Negative) Urine RBC 0-2 (0-2) /HPF Urine WBC 21-50 H (0-5) /HPF Ur Squamous Epith Cells 6-10 (0-2) /HPF Urine Bacteria 2+ (None Seen) Hyaline Casts 0-2 (0-2) /LPF Discharge Plan Discharge Clinical Impression: Urinary tract infection Patient Disposition: Home, Self-Care Instructions: Urinary Tract Infection in (ED) Additional Instructions: Drink plenty of fluids Take antibiotic as prescribed Pyridium for discomfort Follow with your PCP if not better Prescriptions: New cefuroxime axetil 500 mg tablet 500 mg PO BID 7 Days Qty: 14 0RF phenazopyridine [Pyridium] 200 mg tablet 200 mg PO TID 2 Days Qty: 6 0RF No Action acyclovir 400 mg tablet 400 mg PO TID 7 Days Qty: 21 0RF doxycycline hyclate 100 mg tablet 100 mg PO BID 7 Days Qty: 14 0RF cefuroxime axetil 250 mg tablet 250 mg PO BID 7 Days Qty: 14 0RF ondansetron 4 mg tablet,disintegrating 4 mg PO Q8H 3 Days Qty: 9 0RF alum-mag hydroxide-simeth [Maalox Advanced] 200-200-20 mg/5 mL suspension 5 ml PO 5XD PRN (Reason: dyspepsia) Qty: 30 0RF Rx Instructions: administer between meals and at bedtime ondansetron 4 mg tablet,disintegrating 4 mg PO Q8H PRN (Reason: nausea and vomiting) Qty: 10 0RF Interventions: ED Discharge Assessment Last Done: 06/08/24 00:03 Discharge Date/Time: 06/08/24 00:05 Print Language: Niuean
[2024-06-07 22:50] LABS: Appearance Urine Cloudy; Color Urine Yellow; Glucose Urine UA Negative (Negative); Leukocyte Esterase Urine Small (1+) (Negative); Nitrite Urine Negative (Negative); Specific Gravity - Urine 1.015 (1.005-1.025); UMIC TRIGGER UACC YES; Urine Blood Negative (Negative); Urine Ketones Negative (Negative); Urine Protein Negative (Neg-Trace)
[2024-06-07 22:52] LABS: Bacteria Urine 2+ (None Seen); Hyaline Casts Urine 0-2 /LPF (0-2); RBC Urine 0-2 /HPF (0-2); UACC Culture Trigger YES; WBC Urine 21-50 /HPF (0-5)
[2024-06-07] MEDS: cefuroxime axetiL 500 MG TABLET PO (23:49)
[2024-06-07] MEDS: Phenazopyridine HCL 200 MG TABLET PO (23:49)
[2024-06-07] MEDS: Acetaminophen 325 MG TABLET 650 MG PO (23:54)
[2024-06-08 00:03] VITALS: BP 100/64; PULSE 98; RESP 15; TEMP 36.7; O2SAT 99
== END 2024-06-08 00:05 | disposition home or self-care (01) ==
PROVIDERS: Emergency Provider Internal Medicine
DX: O23.41 Unspecified infection of urinary tract in pregnancy, first trimester (principal); N39.0 Urinary tract infection, site not specified; Z3A.01 Less than 8 weeks gestation of pregnancy
CPT/HCPCS: 36415; 80053; 81001; 84702; 85025; 85610; 87086; 87088; 87186; 99283; 99284

== ENCOUNTER 2024-08-24 10:28 | Outpatient (REF) | payer MEDICAID, SELFPAY ==
[2024-08-24 11:13] LABS: MANUAL DIFF FLAG NO
[2024-08-24 11:35] LABS: Estimated Average Glucose 88 mg/dL; Hemoglobin A1c % 4.7 % (<6.0); Total Hemoglobin (HGBA1C) 3317.2585 umol/L
[2024-08-24 11:40] LABS: Basophils Percent Auto 0.3 % (0-2); Eosinophils Absolute Auto 0.1 X10*3/uL (0.0-0.4); Eosinophils Percent Auto 1.8 % (0-4); Hematocrit 37.8 % (37.0-47.0); Hemoglobin 12.7 g/dl (12.0-16.0); Imm Gran Abs Auto 0.01 X10*3/uL (0.00-0.03); Imm Gran Pct Auto 0.3 % (0.0-0.4); Lymphocytes Percent Auto 26.9 % (20-40); Mean Corpuscular HGB Conc 33.6 g/dl (31.0-35.0); Mean Corpuscular Hemoglobin 29.3 pg (27.0-33.0); Mean Corpuscular Volume 87.3 fL (80.0-98.0); Mean Platelet Volume 12.2 fL (9.4-12.3); Monocytes Absolute Auto 0.4 X10*3/uL (0.1-1.2); Neutrophils Absolute Auto 2.3 x10*3/uL (2.0-8.3); Neutrophils Percent Auto 60.7 % (45-73); Red Blood Count 4.33 X10*6/uL (4.20-5.50); Red Cell Distribution Width 12.2 % (11.0-16.0); White Blood Count 3.8 X10*3/uL (4.8-10.8)
[2024-08-24 11:44] LABS: Platelet Count 143 X10*3/uL (160-400)
[2024-08-24 12:08] LABS: Alanine Aminotransferase 26 U/L (0-31); Alkaline Phosphatase 46 U/L (39-117); Anion Gap 9 (12-20); Aspartate Amino Transferase 27 U/L (5-31); Bilirubin Total 0.4 mg/dL (0.0-1.0); Blood Urea Nitrogen 6 mg/dL (9-16); Carbon Dioxide 28 mmol/L (22-29); Chloride 109 mmol/L (96-108); Cholesterol 134 mg/dL (<200); Estimated Glomerular Filt Rate > 60; Glucose Random 88 mg/dL (60-115); HDL Cholesterol 53 mg/dL (>40); LDL Cholesterol Calculated 75 mg/dL (<100); Potassium 4.1 mmol/L (3.3-5.1); Sodium 142 mmol/L (135-145); Triglycerides 32 mg/dL (<150)
[2024-08-24 12:26] LABS: HIV AB/AG Nonreactive (Nonreactive); HIV Num 1 0.06 S/CO (0.00-0.99); ~HepC Num1 0.49 S/CO (0.00-0.79); ~Hepatitis C Antibody Nonreactive (Nonreactive)
[2024-08-24 12:38] LABS: TSH reflex Free T4 0.57 uIU/mL (0.32-4.0); Vitamin D 25-OH Total 25.9 ng/mL (>30)
[2024-08-27 14:48] LABS: TS Negative Control Passed; TS Panel A 2; TS Panel B 1; TS Positive Control Passed; TSpotTB Negative (Negative)
== END 2024-08-24 10:29 | disposition home or self-care (01) ==
LOC: HO.HHCL 10:28
PROVIDERS: Internal Medicine; Visit Provider Internal Medicine
DX: R00.2 Palpitations (principal); Z11.1 Encounter for screening for respiratory tuberculosis
CPT/HCPCS: 36415; 80053; 80061; 82306; 83036; 84443; 85025; 86481; 86803; 87389

== ENCOUNTER 2024-12-19 19:40 | Emergency (ER) | payer MEDICAID, SELFPAY ==
[2024-12-19 19:52] VITALS: BP 103/72; PULSE 88; RESP 16; TEMP 36.2; O2SAT 99; BMI 26.9
--- NOTE | 2024-12-19 19:56 | ED_ITS ---
HPI - Allergic Reaction General Chief complaint: Allergic Reaction Stated complaint: Stung by bee - L leg Time Seen by Provider: 12/19/24 19:56 Source: patient Mode of arrival: ambulatory Limitations: no limitations History of Present Illness ED Provider: CELINA TREJO PA-C HPI narrative: 29 year old female with no significant pmhx presents to the ED for concerns of a bee sting to the back of her left lower leg. Patient states that she had just gotten out of the shower [employer] in ED when she noticed a small bruise just above her left calf. Admits the area was itchy. She states she had been outside just prior to her shower and believes she may have been stung by a bee as there were bees flying around. Reports allergy only to shrimp. No known bee allergy. Denies any new soaps/lotions/detergents. Denies new meds/abx. Denies recent travel or long car rides. Denies known injury/trauma to the area. Denies nausea, vomiting, difficulty breathing, throat closing sensation. Denies pain. Related Data Previous Rx's ?Medication ?Instructions ?Recorded acyclovir 400 mg tablet 400 mg PO TID 7 days #21 tab s 05/28/23 doxycycline hyclate 100 mg tablet 100 mg PO BID 7 days #14 tabs 05/28/23 cefuroxime axetil 250 mg tablet 250 mg PO BID 7 days # 14 tabs 07/20/23 ondansetron 4 mg disintegrating 4 mg PO Q8H 3 days #9 tabs 07/20/23 tablet aluminum-mag hydroxide-simethicone 5 ml PO 5XD PRN dys pepsia #30 mL 04/04/24 200 mg-200 mg-20 mg/5 mL oral susp (Maalox Advanced) ondansetron 4 mg disintegrating 4 mg PO Q8H PRN nausea and 04/04/24 tablet vomiting #10 tabs cefuroxime axetil 500 mg tablet 500 mg PO BID 7 days # 14 tabs 06/07/24 phenazopyridine 200 mg tablet 200 mg PO TID 2 days #6 tabs 06/07/24 (Pyridium) diphenhydramine HCl 25 mg capsule 25 mg PO Q8H PRN itc edson #20 caps 12/19/24 (Benadryl) Allergies Allergy/AdvReac Type Severity Reaction Status Date / Time shrimp Allergy Angioedema Verified 12/19/24 19:54 Review of Systems Review of Systems: Yes all other systems are reviewed and are negative COUNT INCLUDES THE [facility] Past Medical History Attestation statement: The following information was validated with the patient. Source: old records reviewed and nursing notes reviewed Social History Social History Advance Directives: No Advance Directives Information Provided: No Do you have a plan to hurt others: No Plan Physical Exam ED Vital Signs: Vital Signs - 24 hr 12/19/24 19:52 Temperature 97.1 F Pulse Rate 88 Respiratory Rate 16 Blood Pressure 103/72 Pulse Oximetry 99 Oxygen Delivery Method Room Air BMI result Body Mass Index 26.9 vital signs stable General: Well appearing, in no acute distress. Skin: Warm, dry, intact. No rashes or lesions. Head: Normocephalic, atraumatic. EENT: Hearing is intact b/l. Conjunctiva clear. Sclera is anicteric. PERRLA. EOM intact. Moist mucous membranes.? Cardiac: Chest wall symmetric. RRR Lungs: airway patent. Normal respiratory effort without accessory muscle use. CTA bilaterally. No rales, rhonchi, or wheezes.? Abdomen: Soft, non-tender, non-distended. No rebound tenderness or guarding. Positive BS x4. Ext: + small area of ecchymosis noted just below popliteal fossa, no erythema, no rash. non ttp. no calf tenderness. Neuro: AOx3. Normal speech. Ambulating with steady gait. Course Course Course Narrative: Exam reassuring. There is an area of ecchymosis, unclear if there may have been an insect bite here. Patient reports mild itchiness to the area however no other symptoms. I am not concerned about an anaphylactic reaction or DVT. Advised Benadryl at home for symptoms with PCP follow up. Patient has remained stable throughout ED visit today. Discussed worrisome signs and symptoms and when to return to the ED. All questions answered at this time. Patient is agreeable with disposition and stable for discharge. Medical Decision Making Medical Decision Making MDM Narrative: 29 year old female with no significant pmhx presents to the ED for concerns of a bee sting to the back of her left lower leg. Vital signs stable. She is well- appearing and in no acute distress. No respiratory distress noted, airway pa tent. On exam, small area of ecchymosis noted just below popliteal fossa, no erythema, no rash. non ttp. no calf tenderness. Differential diagnosis includes insect bite, the sting, contusion. Unlikely DVT, anaphylaxis. Plan for symptomatic treatment with discharge home. Differential Diagnosis Differential Diagnoses: The differential diagnosis associated with the presentation includes as above. Admission/Observation not indicated. Prescription Management I considered prescription management with: Other (Benadryl) Social Determinants Patient?s care significantly limited by Social Determinants of Health including: Other Social Determinant of Health Critical Care Time Critical Care Time Critical Care Time: No Discharge Plan Discharge Clinical Impression: Bee sting Patient Disposition: Home, Self-Care Instructions: Insect Bite or Sting (ED) Additional Instructions: You were evaluated in the ED today for insect sting. I am sending Benadryl to your pharmacy. You may take this every 8 hours as needed for itching. Return with any new or worsening symptoms. In the case of an emergency call 911. Prescriptions: New diphenhydramine HCl [Benadryl] 25 mg capsule 25 mg PO Q8H PRN (Reason: itching) Qty: 20 0RF No Action cefuroxime axetil 500 mg tablet 500 mg PO BID 7 Days Qty: 14 0RF phenazopyridine [Pyridium] 200 mg tablet 200 mg PO TID 2 Days Qty: 6 0RF acyclovir 400 mg tablet 400 mg PO TID 7 Days Qty: 21 0RF doxycycline hyclate 100 mg tablet 100 mg PO BID 7 Days Qty: 14 0RF cefuroxime axetil 250 mg tablet 250 mg PO BID 7 Days Qty: 14 0RF ondansetron 4 mg tablet,disintegrating 4 mg PO Q8H 3 Days Qty: 9 0RF alum-mag hydroxide-simeth [Maalox Advanced] 200-200-20 mg/5 mL suspension 5 ml PO 5XD PRN (Reason: dyspepsia) Qty: 30 0RF Rx Instructions: administer between meals and at bedtime ondansetron 4 mg tablet,disintegrating 4 mg PO Q8H PRN (Reason: nausea and vomiting) Qty: 10 0RF Referrals: [facility] [Primary Care Provider, Medical] Interventions: ED Discharge Assessment Last Done: 12/19/24 20:10 Discharge Date/Time: 12/19/24 20:10 Print Language: Trinidadian
[2024-12-19 20:10] VITALS: BP 103/72; PULSE 88; RESP 16; TEMP 36.2; O2SAT 99
== END 2024-12-19 20:10 | disposition home or self-care (01) ==
PROVIDERS: Emergency Provider Emergency Medicine Emergency Medical Services
DX: T63.441A Toxic effect of venom of bees, accidental (unintentional), initial encounter (principal); Y92.9 Unspecified place or not applicable; L29.89 Other pruritus; M79.605 Pain in left leg
CPT/HCPCS: 99282

== ENCOUNTER 2025-02-13 11:51 | Outpatient (REF) | payer MEDICAID, SELFPAY ==
[2025-02-14 13:37] LABS: Bacterial Vaginosis PCR POSITIVE (Negative); Candida Group PCR NOT DETECTED (Not Detect); Candida glab krusei PCR NOT DETECTED (Not Detect); Trichomonas vaginalis PCR NOT DETECTED (Not Detect)
[2025-02-14 14:06] LABS: CT PCR NOT DETECTED (Not Detect.); NG PCR NOT DETECTED (Not Detect.)
--- OUTSIDE RECORDS SUMMARY | 2025-02-14 16:16 | XMS_ITS | Clinical Summary ---
Author Organization [facility] ity Address [address] [place] [address] Care Team Providers Care Electrical Designer Name Role Phone Unavailable Primary Care Provider Unavailabl e Social History Tobacco Use Types Packs/Day Years Used Date Smoking Tobacco: Never Assessed Comments Unknown Sex and Gender Information Value Date Recorded Sex Assigned at Not on file Legal Sex Female 4:18 AM EST Gender Identity Not on file Sexual Orientation Not on file Plan of Treatment Health Maintenance Due Date Last Done Comments DTaP,Tdap,and Td Vaccines (1 - Tdap) 2016 Hepatitis B Vaccines (1 of 3 - 19+ 3-dose series) 2016 Cervical Cancer Screening: P ap Smear 2018 Depression Screening 06/06/2024 COVID-19 Vaccine (1 - 2023-2 5 season) 2025 Influenza Vaccine (#1) 2025 HIB Vaccines Aged Out No longer eligi ble based on patient's age to complete this topic HPV Vaccines Aged Out No longer eligi ble based on patient's age to complete this topic Hepatitis A Vaccines Aged Out No long er eligible based on patient's age to complete this topic IPV Vaccines Aged Out No longer eligi ble based on patient's age to complete this topic MMR Vaccines Aged Out No longer eligi ble based on patient's age to complete this topic Meningococcal ACWY Vaccine Aged Out N o longer eligible based on patient's age to complete this topic Meningococcal B Vaccine Aged Out No l onger eligible based on patient's age to complete this topic Pneumococcal Vaccine: Pediat rics (0 to 5 Years) and At-Risk Patients (6 to 49 Years) Aged Out No longer eligible b ased on patient's age to complete this topic RSV Immunization Patients Un morenita 20 months Aged Out No longer eligible b ased on patient's age to complete this topic Varicella Vaccines Aged Out No longer eligible based on patient's age to complete this topic
== END 2025-02-13 11:52 | disposition home or self-care (01) ==
LOC: HO.HHCLNP 11:51
PROVIDERS: Visit Provider Nurse Practitioner Primary Care
DX: Z11.3 Encounter for screening for infections with a predominantly sexual mode of transmission (principal); R39.9 Unspecified symptoms and signs involving the genitourinary system
CPT/HCPCS: 81515; 87086; 87491; 87591